=== PATIENT | female | born 1975 | race American Indian/Alaskan Native ===

== ENCOUNTER 2017-12-22 02:47 | Emergency (ER) | payer MEDICAID, OTHER ==
[2017-12-22] MEDS ORDERED: TESSALON PERLES PO ONE (07:46)
[2017-12-22] MEDS ORDERED: XOPENEX IH ONE (07:46)
--- NOTE | 2017-12-22 08:02 | Emergency Department Report ---
Minor Respiratory - HPI Chief Complaint: Upper Respiratory Infection Stated Complaint: COUGH Time Seen by Provider: 12/22/17 07:43 Duration: 5 Days Severity: moderate Minor Respiratory: Yes Able to Tolerate Fluids, Yes Cough, Yes Shortness of Breath ( with coughing), No Rhinorrhea, No Sore Throat, No Ear Pain, No Sick Contacts, No Hemoptysis, No Chest Pain, No Fever Other History: Patient is a 52-year-old female at 39 weeks gestation followed by CATTLE SORTER who presents here complaining of white foam mucus productive cough started 5 days ago. Patient states cough is worse and causing her some shortness of breath. Patient states she is scheduled to see her OBGYN today. She denies fevers/chills/nausea/vomiting//vaginal bleeding/chest pain/dizziness or headaches ED Review of Systems ROS: Stated complaint: COUGH Other details as noted in HPI Constitutional: denies: chills, fever Eyes: denies: eye pain, eye discharge, vision change ENT: denies: ear pain, throat pain Respiratory: cough, other (feeling out of breath). denies: shortness of breath , wheezing Cardiovascular: denies: chest pain, palpitations Endocrine: no symptoms reported Gastrointestinal: denies: abdominal pain, nausea, diarrhea Genitourinary: denies: urgency, dysuria, discharge Musculoskeletal: denies: back pain, joint swelling, arthralgia Skin: denies: rash, lesions Neurological: denies: headache, weakness, paresthesias Psychiatric: denies: anxiety, depression Hematological/Lymphatic: denies: easy bleeding, easy bruising ED Past Medical Hx - Past Medical History Previous Medical History?: No - Surgical History Past Surgical History?: Yes Additional Surgical History: - Social History Smoking Status: Never Smoker Substance Use Type: None - Medications Home Medications: Home Medications Medication Instructions Recorded Confirmed Last Taken Type traMADol [Ultram] 50 mg PO Q6HR PRN 12/21/13 12/21/13 12/20/13 09:00 History Acetaminophen/Codeine [Tylenol #3] 1 tab PO Q6H PRN #15 tab 12/22/13 Unknown Rx Ferrous Sulfate [Feosol 325 MG tab] 325 mg PO BID #60 tablet 12/22/13 Unknown Rx Nitrofurantoin [place]/M-Cryst 100 mg PO Q12HR #14 capsule 12/22/13 Unknown Rx [Macrobid] Benzonatate [Tessalon Perles] 100 mg PO TID #20 capsule 12/22/17 Unknown Rx guaiFENesin [Robitussin] 200 mg PO Q6HR #80 ml 12/22/17 Unknown Rx Minor Respiratory Exam - Exam General: Vital signs noted. No distress. Alert and acting appropriately. EXTREMITIES: NO peripheral edema. HEENT: Yes Moist Mucous Membranes, No Pharyngeal Erythema, No Pharyngeal Exudates, No Rhinorrhea, No Conjuctival Injection, No Frontal Tenderness, No Maxillary Tenderness Ear: Neither TM Bulge, Neither TM Erythema, Neither EAC Pain, Neither EAC Discharge Neck: Yes Supple, No Adenopathy Lungs: Yes Good Air Exchange, No Wheezes, No Ronchi, No Stridor, No Cough, No Labored Respirations, No Retractions, No Use of Accessory Muscles, No Other Abnormal Lung Sounds Heart: Yes Regular, No Murmur Abdomen: Yes Normal Bowel Sounds, No Tenderness, No Peritoneal Signs Skin: No Rash, No Edema Neurologic: Alert and oriented, no deficits. Musculoskeletal: Unremarkable. ED Course Vital Signs 12/22/17 03:46 Temperature 98.7 F Pulse Rate 91 H Respiratory 18 Rate Blood Pressure 138/84 O2 Sat by Pulse 98 Oximetry - Consultations Consultation #1: Discussed with patient's CATTLE SORTER with Dr. Caruso, covering for Dr. Jackson OB/ TRANSFERRER. Discussed patient's case with her and she called from that patient has an appointment at 11:30 AM today and to make sure that patient keep that appointment and follow-up and they will see the patient in the office today. 12/22/17 08:05 ED Medical Decision Making - Medical Decision Making Patient is a 42-year-old female at approximately 39 weeks gestation presented bronchitis. ED course: Patient received 1 breathing treatment of Xopenex, 60 mg of prednisone and Tessalon Perles Patient reports feeling better, states her breathing is much better but still mild cough. Patient reports appointment with her CATTLE SORTER 11:30 AM this morning. I recommended the patient to follow up keep that appointment and discuss symptoms with her CATTLE SORTER. I discussed the patient that I spoke with her CATTLE SORTER was states they will see her today in the office. Vital signs are normal patient is in no respiratory or acute distress. I discussed with the patient at anytime symptoms worsen to return to ED immediately. She reports no problems, good movement, no looking of fluids, no vaginal bleeding. Critical care attestation.: If time is entered above; I have spent that time in minutes in the direct care of this critically ill patient, excluding procedure time. ED Disposition Clinical Impression: Bronchitis Disposition: DC-01 TO HOME OR SELFCARE Is pt being admited?: No Does the pt Need Aspirin: No Condition: Stable Instructions: Acute Bronchitis (ED), Chronic Bronchitis (ED) Additional Instructions: Make sure to follow up with Dr Jackson today as discussed. Take all your medications as you've been prescribed. If you have any worsening symptoms or develop new symptoms please return to ED immediately. Prescriptions: Benzonatate [Tessalon Perles] 100 mg PO TID #20 capsule guaiFENesin [Robitussin] 200 mg PO Q6HR #80 ml Referrals: MARCO ANTONIO JACKSON MD [Primary Care Provider] - 3-5 Days Time of Disposition: 08:50
[2017-12-22] MEDS ORDERED: DELTASONE PO ONE (08:54)
[2017-12-22 08:56] VITALS: BP 154/92
== END 2017-12-22 09:15 | disposition home or self-care (01) ==
LOC: ED 02:47
DX: O99.513 Diseases of the respiratory system complicating pregnancy, third trimester (principal); Z3A.39 39 weeks gestation of pregnancy; J40 Bronchitis, not specified as acute or chronic
CPT/HCPCS: 99282; J7512

== ENCOUNTER 2017-12-26 10:36 | Inpatient (IN) | payer MEDICAID, OTHER ==
--- NOTE | 2017-12-25 11:35 | History and Physical Report ---
History of Present Illness Date of examination: 12/25/17 Date of admission: 12/26/17 Chief complaint: c/s History of present illness: Pt presents for repeat c/s @ 39 wks. has been complicated by +Downs testing, heart anomalies, and AMA. All risk, benefits, and alternatives were d/w pt and questions were addressed and answered. EDC Calculations LMP: 12/31/2017 EDC Confirmation: 12/31/2017 Gestational Age: 23 3/7 weeks Past History : 4 Term Births: 1 Living Children: 1 Para: 1 Prev : 1 Aborta: 2 Elect. 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 of genital herpes: no Partner hx. of genital herpes: no Rash, Viral, or Febrile illness since last LMP? no Genetic History ADVANCED MATERNAL AGE Congenital Heart Defect: Mom: no Dad: no Briana Disease: Mom: no Dad: no Thalassemia Mom: no Dad: no Neural Tube Defect Mom: no Dad: no Down's Syndrome Mom: no Dad: no Yung-Sachs Mom: no Dad: no Sickle Cell Disease/Trait Mom: no Dad: no Hemophilia Mom: no Dad: no Muscular Dystrophy Mom: no Dad: no Cystic Fibrosis Mom: no Dad: no [place] Chorea Mom: no Dad: no Mental Retardation Mom: no Dad: no Fragile X Mom: no Dad: no Other Genetic/Chromosomal Disorder Mom: no Dad: no Child w/other defect Mom: no Dad: no Enviromental Exposures Xray Exposure: no Medication, drug, or alcohol use since LMP: no Chemical/Other Exposure: no Exposure to Cat Liter: no Hx of Parvovirus (Fifth Disease): no Occupational Exposure to Children: none Active Medications (reviewed today): None Current Allergies (reviewed today): PCN (Critical) Past History Past Medical History: no pertinent history Past Surgical History: section Social history: no significant social history - Obstetrical History Expected Date of Delivery: 12/31/17 Actual Gestation: 39 Week(s) 1 Day(s) : 4 Para: 1 Hx # Term Pregnancies: 1 Induced : 2 Number of Living Children: 1 Medications and Allergies Allergies Allergy/AdvReac Type Severity Reaction Status Date / Time Penicillins Allergy Swelling Verified 12/21/13 23:59 Home Medications Medication Instructions Recorded Confirmed Last Taken Type traMADol [Ultram] 50 mg PO Q6HR PRN 12/21/13 12/21/13 12/20/13 09:00 History Acetaminophen/Codeine [Tylenol #3] 1 tab PO Q6H PRN #15 tab 12/22/13 Unknown Rx Ferrous Sulfate [Feosol 325 MG tab] 325 mg PO BID #60 tablet 12/22/13 Unknown Rx Nitrofurantoin [place]/M-Cryst 100 mg PO Q12HR #14 capsule 12/22/13 Unknown Rx [Macrobid] Benzonatate [Tessalon Perles] 100 mg PO TID #20 capsule 12/22/17 Unknown Rx guaiFENesin [Robitussin] 200 mg PO Q6HR #80 ml 12/22/17 Unknown Rx Review of Systems All systems: negative - Physical Exam Cardiovascular: Normal S1, Normal S2 Lungs: Positive: Normal air movement Abdomen: Positive: normal appearance, soft. Negative: distention, tenderness, guarding Genitourinary (Female): Positive: other (deferred) Deep Tendon Reflex Grade: Normal +2 - Obstetrical FHR: auscultation normal Results All other labs normal. 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 Fetus has been being followed by [facility] and will have f/u after delivery.
[~2017-12-26 10:36] MED LIST: BICITRA PO SCH; CLEOCIN 600 MG/50 mL 600 MG/50 ML BAG IV NR; GARAMYCIN 100 MG in NACL 0.9% 100 ML IV SCH; GARAMYCIN/NS 100 MG/100 ML 100 MG/100 ML BAG IV SCH; LACTATED RINGERS 1,000 ML IV SCH; PEPCID IV SCH; PITOCin/NS 20 UNIT/1000ML DRIP 20 UNITS/1,000 ML BAG IV SCH; REGLAN IV SCH
--- NOTE | 2017-12-26 11:07 | Anesthesia Consultation ---
Anesthesia Consult and Med Hx Date of service: 12/26/17 - Airway Anesthetic Teeth Evaluation: Good ROM Head & Neck: Inadequate (somewhat limited) Mental/Hyoid Distance: Adequate Mallampati Class: Class II Intubation Access Assessment: Probably Good - Pre-Operative Health Status ASA Pre-Surgery Classification: ASA2 - Central Nervous System Hx Back Pain: Yes (neck pain)
[2017-12-26 12:39] LABS: Basophils # (Auto) 0.1 K/mm3 (0.0-0.1); Basophils % (Auto) 1.2 % (0.0-1.8); Eosinophils % (Auto) 0.4 % (0.0-4.3); Hematocrit 31.5 % (30.3-42.9); Hemoglobin 10.2 gm/dl (10.1-14.3); Lymphocytes # (Auto) 1.7 K/mm3 (1.2-5.4); Lymphocytes % (Auto) 20.6 % (13.4-35.0); Mean Corpuscular HGB Conc 33 % (30-34); Mean Corpuscular Hemoglobin 28 pg (28-32); Mean Corpuscular Volume 88 fl (79-97); Monocytes # (Auto) 0.6 K/mm3 (0.0-0.8); Monocytes % (Auto) 6.9 % (0.0-7.3); Platelet Count 318 K/mm3 (140-440); Red Blood Count 3.59 M/mm3 (3.65-5.03)
[2017-12-26] MEDS ORDERED: NACL 0.9% IR ONE (14:00)
[2017-12-26] MEDS ORDERED: WATER FOR IRRIG STERILE IR ONE (14:00)
[2017-12-26] MEDS ORDERED: NEO SYNEPHRINE/NS Syringe(OR USE) IV ONE ×2 (14:23)
[2017-12-26] MEDS ORDERED: NACL 0.9% 1000 ML 1,000 ML ONE (14:24)
[2017-12-26] MEDS ORDERED: ASTRAMORPH PF 10MG/10ML ONE (14:25)
[2017-12-26] MEDS ORDERED: ZOFRAN ONE (14:40)
--- NOTE | 2017-12-26 14:45 | Operative Report ---
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 Godinez Dimensional Engineer: ANAM Anesthesia: Combined spinal epidural EBL: 1 L Urine output: 50 mL Fluids: 1300 mL Findings: Liveborn male infant weight 7 lbs. 8 oz. Apgars of 8 and 9 at one and 5 minutes Grossly normal fallopian tubes and ovaries bilaterally Indications: Patient presents for repeat section. All risks benefits and alternatives were discussed with the patient. Consents were signed and placed on the chart. Patient did not desire tubal ligation. Procedure: Patient was taking to the operating room. Patient was then prepped and draped in sterile fashion after anesthesia was found to be adequate. A low transverse skin incision was made with the scalpel through previous incisional scar and carried down to the underlying layer of fascia with the Bovie. The fascia was then incised in the midline and this incision was extended bilaterally with the Bovie. The superior aspect of the fascia was grasped with Johan clamps tented upward and dissected off of the anterior rectus muscles with the scalpel. In similar fashion the inferior aspect of the fascia was grasped with Johan clamps tented upward and dissected off of the anterior rectus muscles. The rectus muscles were then bluntly divided in the midline. The peritoneum was identified and entered into sharply. The large Marco retractor was placed. The bladder blade was placed. A lower transverse uterine incision was made with the scalpel and extended bilaterally with the blunt dissection. Artificial rupture of membranes was performed yielding clear amniotic fluid. The infant's head was then delivered atraumatically. The anterior shoulder and rest of delivered without difficulty. The umbilical cord was clamped x2. The cord was cut. The infant was then placed in sterile bassinet. The cord blood was collected. The placenta was manually extracted in its entirety. The uterus was exteriorized and cleared of all clots and debris. The uterine incision was closed using 0 Vicryl in a running locking fashion. A second imbricating layer of the same suture was then created. Interceed powder was placed along the uterine incision with excellent hemostasis noted. The posterior cul-de-sac was copiously irrigated. The uterus was returned to the abdomen. The gutters were also irrigated. Marco retractor was removed from the abdomen. The anterior rectus muscles were reapproximated using 3-0 Vicryl. The anterior rectus fascia was reapproximated using 0 Vicryl in a running fashion. The subcuticular fat was reapproximated using 2-0 Vicryl in a running fashion. The skin was reapproximated with 4-0 Monocryl in a subcuticular stitch. The patient tolerated the procedure well. Sponge lap and needle counts were all correct x3. Patient was taken to the recovery room awake and in stable condition.
[2017-12-26] MEDS ORDERED: NARCAN 0.4 MG/1 ML IV PRN (14:46)
[2017-12-26] MEDS ORDERED: TORADOL IV PRN (14:46)
[2017-12-26] MEDS ORDERED: MYLICON PO PRN (14:46)
[2017-12-26] MEDS ORDERED: ZOFRAN IV PRN (14:46)
[2017-12-26] MEDS ORDERED: LANSINOH TP PRN (14:46)
[2017-12-26] MEDS ORDERED: TUCKS PAD TP PRN (14:46)
[2017-12-26] MEDS ORDERED: SODIUM CHLORIDE FLUSH SYRINGE 10 ML IV SCH (15:00)
[2017-12-26] MEDS: D5LR 1,000 ML IV SCH (18:13)
[2017-12-26] MEDS: CLEOCIN 600 MG/50 mL 600 MG/50 ML BAG IV SCH (23:10)
[2017-12-27] MEDS: D5LR 1,000 ML IV SCH (01:58)
[2017-12-27 05:14] LABS: Hematocrit 28.5 % (30.3-42.9); Hemoglobin 9.1 gm/dl (10.1-14.3)
--- NOTE | 2017-12-27 05:52 | Progress Note ---
Assessment and Plan - Patient Problems (1) delivery delivered Onset Date: ~12/26/17 Current Visit: Yes Status: Acute Plan to address problem: Pt resting quietly VSS FF below umb Lochia small Dressing D&I H&H 07/27 drop r/t blood loss from surgery No s/sx of anemia Doing well s/p c/s P: continue pathway Advance diet and activity as tolerated. Subjective - Subjective Date of service: 12/27/17 (pt w/o complaint Appears to be in good spirits) Principal diagnosis: Day #1 s/p repeat c/s Patient reports: voiding normally, pain well controlled, ambulating normally : in NICU Objective - Vital Signs Latest vital signs: Vital Signs Temp Pulse Resp BP BP BP Pulse Ox 12/27/17 03:30 98.6 F 78 18 102/68 12/27/17 00:30 98.6 F 78 16 128/68 12/26/17 19:30 98.6 F 74 16 128/62 12/26/17 16:10 97.9 F 68 18 113/68 113/68 100 12/26/17 15:50 98.0 F 71 19 125/62 97 12/26/17 15:46 73 16 110/80 99 12/26/17 15:40 72 10 L 119/64 100 12/26/17 15:36 73 11 L 119/64 100 12/26/17 15:30 71 16 118/65 100 12/26/17 15:28 18 12/26/17 15:26 75 11 L 117/60 100 12/26/17 15:20 83 15 121/56 100 12/26/17 15:15 58 L 19 121/56 100 12/26/17 15:10 80 16 120/54 100 12/26/17 15:05 79 12 108/60 100 12/26/17 15:00 84 17 113/61 100 12/26/17 14:55 77 25 H 103/26 100 12/26/17 14:52 78 L 12/26/17 14:50 97.6 F 12/26/17 11:51 84 98 12/26/17 11:28 87 99 12/26/17 11:23 87 99 12/26/17 11:17 88 97 12/26/17 11:13 94 H 98 02/27/18 11:10 84 119/68 02/27/18 11:08 97.3 F L 89 18 119/68 98 12/26/17 11:07 102 H 98 Intake and Output 12/26/17 12/26/17 12/27/17 14:59 22:59 06:59 Intake Total 1300 1100 1468.75 Output Total 50 150 800 Balance 1250 950 668.75 Intake: IV 1300 800 968.75 D5lr 1,000 ml @ 125 mls/ 968.75 hr IV DIRECT NEAL Rx#: [id number] Oral 200 Intake, Free Water 300 300 Output: Urine 50 150 800 Indwelling Catheter 800 Other: Total, Intake Amount 200 Total, Output Amount 800 Weight 240 lb Estimated Blood Loss 1,000 Patient Weight 12/27/17 06:59 Weight 240 lb - Exam Breasts: Present: normal Cardiovascular: Present: Regular rate Lungs: Present: Clear to auscultation, Normal air movement Abdomen: Present: normal appearance, soft, normal bowel sounds Vulva: both: normal Uterus: Present: normal, fundal height below umbilicus Extremities: Present: normal Deep Tendon Reflex Grade: Normal +2 Incision: Present: normal, dry, intact, dressed (to be removed later today) - Labs Labs: Abnormal lab results 12/26/17 12/27/17 Range/Units 11:37 04:33 RBC 3.59 L (3.65-5.03) M/mm3 Hgb 9.1 L (10.1-14.3) gm/dl Hct 28.5 L (30.3-42.9) % Seg Neutrophils % 70.9 H (40.0-70.0) %
[2017-12-27] MEDS ORDERED: BOOSTRIX IM ONE (06:00)
[2017-12-27] MEDS ORDERED: CLEOCIN 600 MG/50 mL 600 MG/50 ML BAG IV ONE (08:00)
[2017-12-27] MEDS: CLEOCIN 600 MG/50 mL 600 MG/50 ML BAG IV SCH (08:25)
[2017-12-27] MEDS: MOTRIN PO PRN ×2 (09:46→16:20)
[2017-12-27] MEDS: FEOSOL PO SCH (09:46)
[2017-12-27] MEDS ORDERED: BENADRYL IV ONE (10:23)
[2017-12-27] MEDS ORDERED: BENADRYL PO PRN (10:25)
[2017-12-27] MEDS: NORCO 5/325 PO PRN (10:47)
--- NOTE | 2017-12-27 16:04 | Query-Anemia ---
Gisell Topete Date:__12/27/2017 Carbonation Equipment Tender/CDS:___Stacey Phone#:___[phone] Exercise your independent professional judgment when responding to this query. Questions asked do not imply a particular answer is desired or expected. We greatly appreciate your clarification on this issue. Clinical Documentation States: 42 Year old female was admitted on 12/25/2017 for repeat c/s @ 39 wks. The Operative note (Dr. Godinez) on 12/26/2017 states "EBL: 1 L." Clinical Findings Show: Hgb Hct 12/26 10.2 31.5 12/27 9.1 28.5 Etiology: [x ] Anemia due to acute blood loss [ ] Anemia due to chronic blood loss [ ] Anemia secondary to ESRD [ ] Anemia secondary to neoplastic disease [ ] Iron deficiency anemia due to malabsorption [ ] GI Bleed from: [ ] Anemia of chronic disease ,Other: [ ] Precipitous Drop in Hemoglobin [ ] Precipitous Drop in Hematocrit [ ] Other: [ ] Unable to determine [ ] Comment/Explanation: Present on Admission: [ y] Yes (Y) [ ] Clinically undeterminable (W) [ ] No (N) Please also document response in your Progress Notes and/or Discharge Summary and indicate if the condition was present on admission. JAND
[2017-12-28] MEDS: NORCO 5/325 PO PRN ×5 (00:02→21:31)
--- NOTE | 2017-12-28 06:58 | Discharge Summary ---
Providers - Providers Date of Admission: 12/26/17 10:36 Date of discharge: 12/28/17 (pt desires option to go home today) Attending physician: DAVID TOVAR Primary care physician: DAVID TOVAR Hospitalization Reason for admission: section Delivery: Procedure: repeat low transverse Episiotomy: none Laceration: none Incision: normal, dry, intact Other procedures: none complications: none Discharge diagnosis: IUP at term delivered baby: male Hospital course: uncomplicated repeat section baby in NICU Pt w/o complaint VSS FF below umb Lochia scant Dressing removed Incision D&I Pt asymptomatic anemia Doing well s/p c/s P: d/c today with instructions RX provided Pt may opt to stay until the AM if desired. Condition at discharge: Good Disposition: DC-01 TO HOME OR SELFCARE - Discharge Diagnoses (1) delivery delivered Status: Acute Comment: RTO 1 week postop care Plan - Discharge Medications Prescriptions: Docusate Sodium [Colace] 100 mg PO BID PRN #60 capsule PRN Reason: Constipation Ferrous Sulfate [Feosol 325 MG tab] 325 mg PO QDAY #30 tablet Ibuprofen 800 mg PO Q6HR #30 tablet Lidocain2.5%/Prilocai2.5% [Emla] 1 gm TP ONCE #1 tube oxyCODONE /ACETAMINOPHEN [Percocet 5/325] 1 tab PO Q4HR #30 tab - Provider Discharge Summary Activity: routine, no sex for 6 weeks, no heavy lifting 4 weeks, no strenuous exercise Diet: routine Instructions: routine Additional instructions: [] Smoking cessation referral if applicable(refer to patient education folder for contact #) [] Refer to [facility] Booklet Call your doctor immediately for: * Fever > 100.5 * Heavy vaginal bleeding ( >1 pad per hour) * Severe persistent headache * Shortness of breath * Reddened, hot, painful area to leg or breast * Drainage or odor from incision. * Keep incision clean and dry at all times and follow doctor's instructions regarding bathing/showering - Follow up plan Follow up: DAVID TOVAR MD [Primary Care Provider] - 7 Days (Please call [phone] to schedule your postoperative visit in 1 week. Take medications as prescribed. Call with any concerns.)
[2017-12-28] MEDS ORDERED: MILK OF MAGNESIA PO PRN (07:00)
[2017-12-28] MEDS: FEOSOL PO SCH (10:27)
[2017-12-28] MEDS: MOTRIN PO PRN (16:09)
[2017-12-29] MEDS: MOTRIN PO PRN ×2 (02:16→10:26)
[2017-12-29] MEDS: NORCO 5/325 PO PRN (08:06)
[2017-12-29 09:38] VITALS: BP 130/67
[2017-12-29] MEDS: FEOSOL PO SCH (10:27)
== END 2017-12-29 12:50 | disposition home or self-care (01) | DRG 765 ==
LOC: LD 10:36 → APU 17:31 → OB 17:57
PROVIDERS: ADMIT Obstetrics & Gynecology; ATTEND Obstetrics & Gynecology
PROC: 10D00Z1 Extraction of Products of Conception, Low, Open Approach (ICD-10-PCS; principal; 2017-12-26)
PROC: 3E0234Z Introduction of Serum, Toxoid and Vaccine into Muscle, Percutaneous Approach (ICD-10-PCS; 2017-12-27)
DX: O34.211 Maternal care for low transverse scar from previous cesarean delivery (principal); D62 Acute posthemorrhagic anemia; Z37.0 Single live birth; Z3A.39 39 weeks gestation of pregnancy; Z23 Encounter for immunization; Z80.3 Family history of malignant neoplasm of breast; Z80.8 Family history of malignant neoplasm of other organs or systems; Z88.0 Allergy status to penicillin; O90.81 Anemia of the puerperium; O35.1XX0 Maternal care for (suspected) chromosomal abnormality in fetus, not applicable or unspecified; O35.8XX0 Maternal care for other (suspected) fetal abnormality and damage, not applicable or unspecified
CPT/HCPCS: 36415; 85014; 85018; 85025; 86850; 86900; 86901; 88307; J1200; J1580; J1885; J2274; J2370; J2405; J2590; J2765; J7030; J7120; J7121